=== PATIENT | male | born 1955 | race Asian ===

== ENCOUNTER 2024-10-23 10:41 | Inpatient (IN) | payer OTHER ==
[2024-10-23 12:06] LABS: VENOUS BASE EXCESS -4.4 mmol/L (-2-2); VENOUS O2 SATURATION 72.3 % (70-80); VENOUS PCO2 38.5 mmHg (38-52); VENOUS PH 7.351 (7.310-7.410)
[2024-10-23 12:08] LABS: INR 1.06 (0.83-1.09); PROTHROMBIN TIME (PATIENT) 11.6 SEC (9.7-13.0)
[2024-10-23 12:20] LABS: BASO % 2.4 % (0-2.0); EOS % 1.9 % (0-4.5); HEMATOCRIT 20.8 % (35.4-49); MCHC 30.2 g/dl (32.0-35.9); MEAN CELL VOLUME 62.9 fl (80-96); MEAN PLT VOLUME 7.6 fl (7.5-11.1); MONO % 10.2 % (3.8-10.2); NEUT % 66.5 % (42.8-82.8); PLATELET COUNT 294 10^3/uL (134-434); RDW 19.2 % (11.9-15.9); WHITE BLOOD COUNT 6.8 K/mm3 (4.0-10.0)
[2024-10-23 12:24] LABS: HEMOGLOBIN 6.3 GM/dL (11.7-16.9)
[2024-10-23 12:32] LABS: POTASSIUM 5.3 mmol/L (3.5-5.1)
[2024-10-23 12:34] LABS: ALBUMIN 3.1 g/dl (3.4-5.0); BLOOD UREA NITROGEN 37.8 mg/dL (7-18); CALCIUM 8.5 mg/dL (8.5-10.1); MAGNESIUM 2.1 mg/dL (1.8-2.4)
[2024-10-23 12:38] LABS: CREATININE 4.5 mg/dL (0.55-1.3); PHOSPHOROUS 3.3 mg/dL (2.5-4.9)
[2024-10-23 12:39] LABS: BILIRUBIN,TOTAL 0.2 mg/dL (0.2-1); TOT PROT 6.4 g/dl (6.4-8.2)
[2024-10-23 13:26] LABS: ANISOCYTOSIS 1+; MACROCYTOSIS 0; OVALOCYTE 1+; TARGET CELLS 1+
[2024-10-23] MEDS ORDERED: SENNOSIDES 8.6MG TABLET (FP) PO PRN (15:36)
[2024-10-23] MEDS: cloNIDine HCL 0.1 MG TABLET PO SCH (18:04)
[2024-10-23] MEDS: ALBUTEROL SULFATE 0.021% (0.63 MG/3 ML) VIAL.NEB NEB SCH (20:30)
[2024-10-23] MEDS: HEPARIN NA (PORCINE) 5,000 UNITS/ML 1ML VIAL SQ SCH (21:52)
[2024-10-23] MEDS: hydrALAZINE HCL 25 MG TABLET (FP) PO SCH (21:52)
[2024-10-23] MEDS: CARVEDILOL 6.25 MG TABLET (FP) PO SCH (21:52)
[2024-10-23] MEDS: ROSUVASTATIN CA 10 MG TABLET PO SCH (21:52)
[2024-10-23] MEDS: GABAPENTIN 100 MG CAPSULE PO SCH (21:52)
[2024-10-23] MEDS: AMITRIPTYLINE HCL 10 MG TABLET PO SCH (21:53)
[2024-10-23] MEDS: BUDESONIDE/FORMETEROL FUMARATE 160/4.5 mcg INHALER IH SCH (21:53)
[2024-10-24 08:12] LABS: HEMATOCRIT 27.3 % (35.4-49); HEMOGLOBIN 8.6 GM/dL (11.7-16.9); MCH 21.4 pg (25.7-33.7); MCHC 31.7 g/dl (32.0-35.9); MEAN CELL VOLUME 67.4 fl (80-96); MEAN PLT VOLUME 8.1 fl (7.5-11.1); PLATELET COUNT 272 10^3/uL (134-434); RBC 4.04 M/mm3 (4.00-5.60); RDW 22.7 % (11.9-15.9); WHITE BLOOD COUNT 8.8 K/mm3 (4.0-10.0)
[2024-10-24 08:30] LABS: POTASSIUM 5.2 mmol/L (3.5-5.1)
[2024-10-24 08:36] LABS: ALBUMIN 3.1 g/dl (3.4-5.0); CALCIUM 8.6 mg/dL (8.5-10.1)
[2024-10-24 08:37] LABS: BLOOD UREA NITROGEN 39.3 mg/dL (7-18)
[2024-10-24 08:40] LABS: CREATININE 4.4 mg/dL (0.55-1.3)
[2024-10-24 08:41] LABS: BILIRUBIN,TOTAL 0.4 mg/dL (0.2-1); TOT PROT 6.5 g/dl (6.4-8.2)
[2024-10-24] MEDS: ASPIRIN COATED 81 MG TABLET.EC PO SCH (10:55)
[2024-10-24] MEDS: FERROUS SO4 325 MG TABLET (FP) PO SCH (10:55)
[2024-10-24] MEDS: SERTRALINE HCL 50 MG TABLET (FP) PO SCH (10:55)
[2024-10-24] MEDS: ISOSORBIDE MONONITRATE 60 MG TAB.SR.24H (FP) PO SCH (10:55)
[2024-10-24] MEDS: LOSARTAN POTASSIUM 50 MG TABLET PO SCH (10:55)
[2024-10-24] MEDS: PANTOPRAZOLE 40 MG TABLET PO SCH (10:55)
[2024-10-24] MEDS: TAMSULOSIN HCL 0.4 MG CAP PO SCH (10:55)
[2024-10-24] MEDS: amLODIPine BESYLATE 5 MG TABLET (FP) PO SCH (10:55)
[2024-10-24] MEDS: CLOPIDOGREL BISULFATE 75 MG TABLET (FP) PO SCH (10:55)
[2024-10-24] MEDS: SODIUM ZIRCONIUM CYCLOSILICATE (LOKELMA) 5 GM PACKET PO SCH (14:40)
[2024-10-24] MEDS: EPOETIN ALFA-EPBX 10,000 UNIT/ML VIAL SQ ONE (17:52)
[2024-10-24] MEDS: NICOTINE 21 MG/24 HOURS TOPICAL PATCH TD SCH (17:52)
[2024-10-25] MEDS: PANTOPRAZOLE 40 MG TABLET PO SCH (10:42)
[2024-10-25 19:27] LABS: EOS % 1.6 % (0-4.5); HEMATOCRIT 28.9 % (35.4-49); HEMOGLOBIN 9.2 GM/dL (11.7-16.9); LYMPH % 20.5 % (8-40); MCH 21.6 pg (25.7-33.7); MCHC 31.9 g/dl (32.0-35.9); MEAN CELL VOLUME 67.7 fl (80-96); MEAN PLT VOLUME 8.6 fl (7.5-11.1); MONO % 9.3 % (3.8-10.2); NEUT % 66.6 % (42.8-82.8); PLATELET COUNT 266 10^3/uL (134-434); RBC 4.26 M/mm3 (4.00-5.60); RDW 23.5 % (11.9-15.9); WHITE BLOOD COUNT 7.5 K/mm3 (4.0-10.0)
[2024-10-25] MEDS: IRON SUCROSE INJECTION 200 MG in SODIUM CHLORIDE 100 ML IVPB ONE (19:30)
[2024-10-25 19:51] LABS: POTASSIUM 4.8 mmol/L (3.5-5.1)
[2024-10-25 19:54] LABS: ALBUMIN 3.3 g/dl (3.4-5.0); BLOOD UREA NITROGEN 40.2 mg/dL (7-18); CALCIUM 8.5 mg/dL (8.5-10.1)
[2024-10-25 19:58] LABS: CREATININE 4.3 mg/dL (0.55-1.3)
[2024-10-25 19:59] LABS: BILIRUBIN,TOTAL 0.3 mg/dL (0.2-1)
[2024-10-25 20:00] LABS: TOT PROT 6.8 g/dl (6.4-8.2)
[2024-10-25] MEDS: POLYETHYLENE GLYCOL (HEALTHYLAX) 3350 17 GM PACKET PO SCH (22:26)
[2024-10-26] MEDS ORDERED: ALBUTEROL SO4 0.083% IH SOL 2.5 MG/3 ML VIAL.NEB. NEB ONE (00:26)
[2024-10-26 06:27] VITALS: TEMP 98.1
[2024-10-26 07:46] LABS: BASO % 1.3 % (0-2.0); HEMATOCRIT 28.7 % (35.4-49); HEMOGLOBIN 9.1 GM/dL (11.7-16.9); LYMPH % 13.7 % (8-40); MCH 21.3 pg (25.7-33.7); MCHC 31.7 g/dl (32.0-35.9); MEAN CELL VOLUME 67.2 fl (80-96); MEAN PLT VOLUME 8.3 fl (7.5-11.1); MONO % 10.4 % (3.8-10.2); NEUT % 72.6 % (42.8-82.8); PLATELET COUNT 275 10^3/uL (134-434); RBC 4.27 M/mm3 (4.00-5.60); RDW 23.8 % (11.9-15.9); WHITE BLOOD COUNT 9.1 K/mm3 (4.0-10.0)
[2024-10-26 08:14] LABS: POTASSIUM 4.6 mmol/L (3.5-5.1)
[2024-10-26 08:33] LABS: ALBUMIN 3.1 g/dl (3.4-5.0); CALCIUM 8.4 mg/dL (8.5-10.1)
[2024-10-26 08:34] LABS: BLOOD UREA NITROGEN 45.8 mg/dL (7-18)
[2024-10-26 08:37] LABS: BILIRUBIN,TOTAL 0.2 mg/dL (0.2-1); CREATININE 4.2 mg/dL (0.55-1.3)
[2024-10-26 08:38] LABS: TOT PROT 6.4 g/dl (6.4-8.2)
[2024-10-26 09:49] VITALS: BP 148/78; PULSE 67; RESP 18
[2024-10-26] MEDS: PANTOPRAZOLE 40 MG TABLET PO SCH (09:56)
[2024-10-26] MEDS: IRON SUCROSE INJECTION 200 MG in SODIUM CHLORIDE 100 ML IVPB ONE (11:09)
[2024-10-26 15:20] VITALS: BMI 23.8
[2024-10-30] MEDS ORDERED: ERGOCALCIFEROL (VIT D2) 50,000 UNIT (1.25 MG) CAPSULE PO SCH (10:00)
== END 2024-10-26 13:57 | disposition home or self-care (01) | DRG 253 ==
LOC: JER 10:41 → JERBED 13:14 → OBSVTOIN 15:37 → J4W 16:57
PROVIDERS: ADMIT Family Medicine; ATTEND Family Medicine
PROC: 30233N1 Transfusion of Nonautologous Red Blood Cells into Peripheral Vein, Percutaneous Approach (ICD-10-PCS; principal; 2024-10-23)
DX: K92.2 Gastrointestinal hemorrhage, unspecified (principal); C61 Malignant neoplasm of prostate; J44.9 Chronic obstructive pulmonary disease, unspecified; I25.10 Atherosclerotic heart disease of native coronary artery without angina pectoris; R91.1 Solitary pulmonary nodule; E87.5 Hyperkalemia; I12.9 Hypertensive chronic kidney disease with stage 1 through stage 4 chronic kidney disease, or unspecified chronic kidney disease; N18.9 Chronic kidney disease, unspecified; K86.2 Cyst of pancreas; K76.9 Liver disease, unspecified; D63.8 Anemia in other chronic diseases classified elsewhere
CPT/HCPCS: 0241U-QW; 36415; 36430; 71045-TC-FY; 71250-TC; 80053; 82728; 82803; 83540; 83550; 83735; 83880; 84100; 84484; 85025; 85027; 85610; 85730; 86850; 86900; 86901; 86922; 93005; 93010; 94640; 99285-25; G0378; J1644; J1756; P9058; Q5106